=== PATIENT | male | born 1985 | race Caucasian/White ===

== ENCOUNTER 2019-01-06 08:42 | Outpatient (CLI) | payer OTHER ==
[2019-01-06] MEDS ORDERED: IOTHALAMATE MEGLUMINE 50 ML VIAL ONE (08:54)
[2019-01-06] MEDS ORDERED: GADOPENTETATE DIMEGLUMINE 5 ML VIAL IVP ONE ×2 (08:54→10:05)
[2019-01-06] MEDS ORDERED: BUFFERED LIDOCAINE 10 ML SYRINGE ONE (08:55)
[2019-01-06] MEDS ORDERED: BUFFERED LIDOCAINE 10 ML SYRINGE IU ONE (10:05)
[2019-01-06] MEDS ORDERED: IOTHALAMATE MEGLUMINE 50 ML VIAL IVP ONE (10:05)
--- NOTE | 2019-01-06 15:09 | MRI Report ---
Reason: OTHER INSTABILITY,RIGHT SHOULDER Procedure Date: 01/06/2019 Accession Number: [id number] / [id number] Procedure: MRI - Arthrogram Shoulder RT CPT Code: FULL RESULT: EXAM: RIGHT SHOULDER MRI ARTHROGRAM WITH CONTRAST. EXAM DATE: 01/06/2019 08:57 AM. CLINICAL HISTORY: Other instability, right shoulder. COMPARISON: None. TECHNIQUE: Multiplanar, multisequence T1-weighted and fluid-sensitive sequences of the shoulder after an arthrographic injection of dilute gadolinium, dictated under a separate exam. Other: None. FINDINGS: Acromioclavicular Region: The acromion is type II. The acromioclavicular joint is unremarkable. The coracoacromial and coracoclavicular ligaments are intact. There is no contrast or fluid in the subacromial/subdeltoid bursa. Glenohumeral Region: No subluxation. No loose bodies. The articular cartilage is unremarkable. The glenohumeral ligaments and joint capsule are unremarkable. Bone Marrow: No fracture or bone lesion. Labrum: Full-thickness tear posterior superior aspect. Partial thickness tear anterior inferior aspect. Contrast imbibition deep and anterior to the biceps anchor. Biceps Tendon: The long head of the biceps tendon and biceps christian are intact. Musculature/Rotator Cuff: Mild supraspinatus tendinopathy. Shallow articular surface fraying at the central to posterior fibers. Minimal infraspinatus tendinopathy. Teres minor and subscapularis tendons intact. No edema or fatty atrophy. Other: The subcutaneous tissues are unremarkable. IMPRESSION: 1. Full-thickness tear posterior superior labrum. 2. Partial-thickness tear anterior inferior labrum. 3. Normal variant sulcus versus undersurface tear superior labrum extending deep and anterior to the biceps anchor (possible SLAP tear). 4. Mild supraspinatus tendinopathy or shallow articular surface fraying. 5. Minimal infraspinatus tendinopathy. [facility] MUSCULOSKELETAL RADIOLOGY SECTION
--- NOTE | 2019-01-06 16:54 | XRAY Report ---
Reason: OTHER INSTABILITY,RIGHT SHOULDER Procedure Date: 01/06/2019 Accession Number: [id number] / [id number] Procedure: FL - Arthrogram Needle Placement CPT Code: FULL RESULT: EXAM: RIGHT SHOULDER ARTHROGRAPHIC INJECTION WITH FLUOROSCOPIC GUIDANCE EXAM DATE: 01/06/2019 09:42 AM. CLINICAL HISTORY: OTHER INSTABILITY,RIGHT SHOULDER. Pain COMPARISON: None. TECHNIQUE: The risks, benefits, and alternatives of the procedure were discussed with the patient. All questions were answered. Written and verbal consent were obtained. The right glenohumeral joint was marked under fluoroscopy and prepped and draped in a sterile manner. Local anesthesia was performed with 1% lidocaine. A 22-gauge needle was then inserted into the glenohumeral joint. 12 mL of a solution containing 25% 1% lidocaine, 25% iodinated contrast, and a 1:200 dilution of gadolinium contrast in sterile saline was then injected. The needle was removed without immediate complication. Other: None. Fluoroscopy Time: 41 seconds. Number of Images: 1. FINDINGS: Bones and joints: No fracture or subluxation. Injection: Fluoroscopic images demonstrate needle placement and contrast in the glenohumeral joint. No contrast extravasation outside of the glenohumeral joint. IMPRESSION: Successful fluoroscopically guided arthrographic injection of the right shoulder. [facility]
== END 2019-01-06 08:43 | disposition home or self-care (01) ==
LOC: DI 08:42
PROVIDERS: ATTEND Orthopaedic Surgery
DX: S43.491A Other sprain of right shoulder joint, initial encounter (principal); M75.81 Other shoulder lesions, right shoulder; M25.311 Other instability, right shoulder
CPT/HCPCS: 23350; 73222; 77002; Q9961